=== PATIENT | female | born 1995 | race Caucasian/White ===

== ENCOUNTER 2019-09-05 20:30 | Emergency (ER) | payer MEDICAID, SELFPAY ==
[2019-09-05 20:35] VITALS: BP 122/79; PULSE 88; RESP 18; TEMP 36.8; O2SAT 98; BMI 22.7
[2019-09-05 20:47] VITALS: BP 109/66; PULSE 75; RESP 16; O2SAT 98
--- NOTE | 2019-09-05 20:47 | ED_ITS ---
HPI - Headache General: Chief Complaint: Headache Stated Complaint: H/A Time Seen by Provider: 09/05/19 20:43 Source: patient Mode of arrival: ambulatory Limitations: no limitations History of Present Illness: HPI Narrative: 24-year-old female who has a history of migraines states she had a migraine that started this morning. She states it started gradually and worsened throughout the day and is now a 9 out of 10. She states that bright lights and loud sounds make it worse and it is improved in a dark room. She denies any fever or neck pain. MD elicited complaint: headache and migraine Onset (ago): hour(s) Onset description: gradually Severity: moderate Quality & Timing: aching Exacerbating factors: light Relieving factors: dark room Associated symptoms: Deny chest pain, fever(s), nausea, rash or vomiting Review of Systems Const: Denies: fever(s), chills, body aches or change in appetite Eyes: Denies: blurry vision or eye discomfort ENMT: Denies: throat pain or dental pain Card: Denies: chest pain Resp: Denies: dyspnea GI: Denies: abdominal pain, nausea, vomiting or diarrhea : Denies: dysuria Musc: Denies: neck pain or back pain Skin/Breast: Denies: rash Neuro: Reports: headache(s) Psych: Denies: depression Gabriel/Lymph: Denies: easy bruising All/Imm: Denies: urticaria PFSH ED PFSH: Social History Smoking and tobacco status: current every day smoker Physical Exam Const: COMMON NORMALS: no acute distress, patient oriented x3 and healthy appearing HENMT: COMMON NORMALS: normocephalic and atraumatic HEAD & SCALP: normocephalic and atraumatic Eye: COMMON NORMALS: Equal, round and reactive pupils present and EOMs intact bilaterally PUPIL: Yes Equal, round and reactive pupils present Neck/C-Spine: COMMON NORMALS: full ROM and supple Chest: COMMONS NORMALS: normal inspection of the chest and normal palpation of entire chest wall Resp: COMMON NORMALS: normal respiratory effort, No retractions, No use of accessory muscles and clear to auscultation bilaterally AUSCULTATION: clear to auscultation bilaterally Cardio: COMMON NORMALS: regular rate, regular rhythm and No murmurs present (Cardio) RATE: regular rate RHYTHM: regular rhythm GI: COMMON NORMALS: Normal to inspection, nondistended, normoactive bowel sounds present, Soft to palpation, non-tender and no masses PALPATION: Yes Soft to palpation Extremity: COMMON NORMALS: normal to inspection and full ROM Neuro: COMMON NORMALS: patient oriented x3, moves all extremities and no focal motor deficits Psych: COMMON NORMALS: mental status grossly normal, Normal thought process present and cooperative THOUGHT PROCESS: Normal thought process present Skin: COMMON NORMALS: no rashes or lesions noted and no wounds GENERAL SKIN EXAM: no rashes or lesions noted Course Vital Signs: Vital signs: Vital Signs Temperature 98.2 F 09/05/19 20:35 Pulse Rate 75 09/05/19 20:47 Respiratory Rate 16 09/05/19 20:47 Blood Pressure 109/66 09/05/19 20:47 Pulse Oximetry 98 09/05/19 20:47 MDM - Headache MDM Narrative: Medical decision making narrative: Patient presents here with migraine headache has a history of migraine headaches. Patient has no signs of subarachnoid hemorrhage or meningitis. Patient feels much improved here. Patient is stable for discharge and is to follow-up with primary care doctor in 3 to 5 days return if worsening. 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
--- NOTE | 2019-09-05 20:47 | PC.NURSE ---
patient states she has been having headaches for the last month when she wakes up. Patient states she woke up today and it was worse.
[2019-09-05] MEDS: ketorolac 30 mg/mL INJ 15 MG IVP (21:04)
[2019-09-05] MEDS: metoclopramide 5 mg/mL SDV 2 mL 10 MG IVP (21:04)
[2019-09-05] MEDS: diphenhydrAMINE 50 mg/mL SDV 1mL IVP (21:04)
[2019-09-05] MEDS: sodium chloride 0.9% 1,000 ML 999 ML IV (21:05)
[2019-09-05 21:51] VITALS: BP 122/83; PULSE 91; RESP 14; O2SAT 100
--- NOTE | 2019-09-08 14:04 | DCPLANNER ---
parts and service manager had message to schedule a follow up appointment for patient with Dr. Ramirez. parts and service manager called the office of Dr. Ramirez, spoke with Angelica, gave clinic patients information. A follow up appointment was scheduled for , September 16, 2019 at 8:00 with Rocco. parts and service manager called patient, unable to speak with patient at this time, a voicemail was left for patient to return rehabilitation case coordinator phone call.
--- NOTE | 2019-09-28 14:24 | DCPLANNER ---
Patient did attend appointment scheduled for 09.16.19 with .
== END 2019-09-05 21:53 | disposition home or self-care (01) ==
PROVIDERS: Emergency Provider Emergency Medicine; PCP Nurse Practitioner
DX: G43.909 Migraine, unspecified, not intractable, without status migrainosus (principal); F17.210 Nicotine dependence, cigarettes, uncomplicated
CPT/HCPCS: 12345; 96361; 96374; 96375; 99282; 99283; J1200; J1885; J2765; J7030

== ENCOUNTER → 2019-09-16 08:02 | Outpatient (BNVA) | payer MEDICAID, SELFPAY | PROVIDERS: PCP Nurse Practitioner; Visit Provider Nurse Practitioner | DX: G43.711 Chronic migraine without aura, intractable, with status migrainosus (principal) | CPT/HCPCS: 99204 ==

== ENCOUNTER 2019-09-16 10:43 | Outpatient (CLI) | payer MEDICAID, SELFPAY ==
[2019-09-16 11:17] LABS: Basophils % 0.4 %; Eosinophils # 0.3 10^3/uL (0.0-0.8); Eosinophils % 2.9 %; Hematocrit 42.6 % (37.0-47.0); Hemoglobin 14.3 g/dL (11.5-15.3); Lymphocytes # 2.7 10^3/uL (0.8-4.8); Lymphocytes % 28.8 %; Mean Corpuscular HGB Conc 33.6 g/dL (30.0-36.0); Mean Corpuscular Hemoglobin 28.9 pg (28.0-34.0); Mean Corpuscular Volume 86.2 fL (81-99); Mean Platelet Volume 10.3 fL (7.4-10.4); Monocytes # 1.1 10^3/uL (0.2-0.9); Monocytes % 11.2 %; Neutrophils # 5.4 10^3/uL (1.8-7.7); Neutrophils % 56.5 %; Nucleated Red Blood Cells % 0 %; Platelet Count 356 10^3/cmm (130-400); Red Blood Count 4.94 10^6/uL (4.1-5.3); Red Cell Distribution Width 13.8 % (12.1-15.1); White Blood Count 9.5 10^3/uL (4.0-10.0)
[2019-09-16 11:44] LABS: Alanine Aminotransferase 26 U/L (0-33); Albumin Level 4.4 g/dL (3.5-5.2); Alkaline Phosphatase 84 IU/L (35-105); Anion Gap 17.9 (5-19); Aspartate Amino Transferase 28 U/L (0-32); Blood Urea Nitrogen 7 mg/dL (6-20); Calcium 9.5 mg/dL (8.5-10.5); Carbon Dioxide 22 mmol/L (22-29); Chloride 103 mmol/L (98-107); Globulin 3.2 g/dL (1.3-4.6); Glomerular Filtration Rate 76.3 mL/min (90-130); Glucose 89 mg/dL (65-115); Iron 71 ug/dL (37-145); Osmolality Calculated 283 mOsm/kg (285-295); Potassium 3.9 mmol/L (3.5-5.1); Sodium 139 mmol/L (136-145); Thyroid Stimulating Hormone 5.21 uIU/mL (0.27-4.20); Total Bilirubin 0.2 mg/dL (0.15-1.2); Total Protein 7.6 g/dL (6.6-8.7)
== END 2019-09-16 10:44 | disposition home or self-care (01) ==
LOC: LAB 10:43
PROVIDERS: Visit Provider Nurse Practitioner
DX: G43.909 Migraine, unspecified, not intractable, without status migrainosus (principal)
CPT/HCPCS: 80053; 83540; 84443; 85025

== ENCOUNTER → 2019-09-27 16:25 | Outpatient (BNVA) | payer MEDICAID, SELFPAY | PROVIDERS: Visit Provider Nurse Practitioner | DX: R79.89 Other specified abnormal findings of blood chemistry (principal) | CPT/HCPCS: 84439; 84480; 84481 ==

== ENCOUNTER 2019-10-21 10:44 | Outpatient (CLI) | payer MEDICAID, SELFPAY ==
--- NOTE | 2019-10-21 10:52 | MR_ITS ---
WS: [id number] MRI HEAD WITH CONTRAST TECHNIQUE: Sagittal T1, T2 axial, T2 axial FLAIR, axial susceptibility weighted imaging, axial diffus ion weighted images, and coronal T2 images were obtained. Pre and post-T1 axial and post T1 coronal i mages. ADC and FSPGR images. CLINICAL INFORMATION: NEW AND WORSENING HEADACHE COMPARISON: CT 09/11/2015 MRI 5 10,012. FINDINGS: No evidence of restricted diffusion to suggest acute ischemia. Ventricular system and basal cisterns are patent. No suspicious intracranial signal abnormalities. Normal fong-white differentiation. Francheska l posterior fossa. Normal vascular flow voids at the skull base. No extra-axial fluid collections. No evidence of mass or mass effect. Paranasal sinuses and mastoid air cells well aerated. No hemosiderin on susceptibly weighted images. Normal optic chiasm and pituitary infundibulum. Tempor al lobes and hippocampal formations are normal in appearance. No abnormal gadolinium enhancement. Nor mal optic chiasm and pituitary infundibulum. Normal visualized dural venous sinuses. MR/MR head wo/w con [id number] IMPRESSION: 1. No evidence of restricted diffusion to suggest acute ischemia. 2. No suspicious intracranial signal abnormalities. 3. No abnormal gadolinium enhancement. 4. No hemosiderin on the susceptibly weighted images. 5. No other significant findings.
== END 2019-10-21 10:45 | disposition home or self-care (01) ==
LOC: RADWPI 10:51
PROVIDERS: Family Provider Family Medicine; PCP Family Medicine; Visit Provider Nurse Practitioner
DX: R51 Headache (principal)
CPT/HCPCS: 70553; A9579

== ENCOUNTER 2020-09-08 08:36 | Emergency (ER) | payer MEDICAID, SELFPAY ==
[2020-09-08 08:43] VITALS: BP 128/93; PULSE 97; RESP 18; TEMP 37.2; O2SAT 97; BMI 27.3
--- NOTE | 2020-09-08 08:49 | US_ITS ---
WS: [id number] TRANSABDOMINAL AND TRANSVAGINAL PELVIC ULTRASOUND HISTORY: pain COMPARISON: None available. Uterus: Normal size anteverted uterus measures 7.6 x 2.8 x 4.2 cm. No fibroid. Endometrium: 0.4 cm. Right ovary: 3.9 x 2.5 x 3.4 cm; RIGHT ovarian cyst measures 2.0 x 2.0 x 2.4 cm. Left ovary: 3.4 x 3.5 x 3.3 cm; normal size ovary. Small follicles. Heterogeneous collapsing follicle is present. No increased vascularity. There is a small amount of free fluid in the cul-de-sac. Physiologic amount. US/US pelvic with transvaginal IMPRESSION: 1. No intrauterine gestation. History states positive test. There is no intrauterine gestation. If there is a positive ectopic is not excluded. Recommend follow-up with serial beta hCG levels. 2. Free fluid in the cul-de-sac. 3. Bilateral ovarian cysts and collapsing follicle LEFT ovary.
--- NOTE | 2020-09-08 08:51 | W.ED.ABDPA2 ---
HPI - Abdominal Pain General: Chief Complaint: Abdominal Pain Stated Complaint: cramping, positive preg test Time Seen by Provider: 09/08/20 08:37 History of Present Illness: HPI narrative: 25-year-old female presents to the emergency room with complaints of pelvic pain. She began having pelvic pain this morning little bit more on the left than the right she had a positive digital test morning she still has Nexplanon in place her periods have been very irregular with. Nexplanon was placed 3 years ago. Patient is G4, P2 SAB 1 including this self reported . MD elicited complaint: abdominal pain Pertinent past history: other Onset (ago): hour(s) Pain Consistency: constant Location: Pelvis (Left greater than right) Severity: moderate Quality: cramping Radiation: none Migration to: no migration Exacerbating factors: nothing Relieving factors: nothing Associated Symptoms: Denies anorexia, belching, bloating, change in bowel habits, change in stool character, chills, coffee ground emesis, constipation, GI cramping, diarrhea, dyspepsia, dysuria, excessive flatus, fever(s), heartburn, hematochezia, hematuria, hematemesis, fecal incontinence, loose stools, melena, nausea, poor appetite, syncope and vomiting Review of Systems Const: Denies: fever(s) or chills ENMT: Denies: throat pain, ear or mastoid pain, nasal discharge or nasal congestion Card: Denies: syncope Resp: Denies: dyspnea, productive cough or non-productive cough GI: Denies: nausea, vomiting, hematemesis, coffee ground emesis, heartburn, diarrhea, constipation, bloating, GI cramping, belching, excessive flatus, fecal incontinence, change in bowel habits, change in stool character, hematochezia or melena : Denies: dysuria or hematuria Skin/Breast: Denies: rash or pruritus PFSH ED PFSH: Family History Grandmother Cancer Other Hypertension Social History Smoking and tobacco status: current every day smoker cigarettes Packs smoked per day: 1 History of recent travel: No Physical Exam Const: COMMON NORMALS: no acute distress GENERAL APPEARANCE: cooperative and comfortable ORIENTATION/CONSCIOUSNESS: Yes awake, Yes oriented to person, Yes oriented to place and Yes oriented to time HENMT: COMMON NORMALS: normocephalic, atraumatic, hearing grossly normal bilaterally and external ears normal HEAD & SCALP: normocephalic and atraumatic EXTERNAL EAR: Yes external ears normal Neck/C-Spine: COMMON NORMALS: no JVD Resp: COMMON NORMALS: normal respiratory effort, No retractions, No use of accessory muscles and clear to auscultation bilaterally AUSCULTATION: clear to auscultation bilaterally Cardio: COMMON NORMALS: no JVD, regular rate, regular rhythm and No murmurs present (Cardio) RATE: regular rate RHYTHM: regular rhythm GI: COMMON NORMALS: Soft to palpation and No hepatosplenomegaly present AUSCULTATION: Yes normoactive bowel sounds PALPATION: Yes Soft to palpation, No Tenderness to palpation present (GI), No Guarding due to palpation present (GI) and Yes No hepatosplenomegaly present Extremity: COMMON NORMALS: normal to inspection, capillary refill normal, no clubbing, cyanosis or edema, no calf tenderness and no pedal edema Neuro: SENSORIUM/ORIENTATION: Yes oriented to person, Yes oriented to place and Yes oriented to time Skin: COMMON NORMALS: no rashes or lesions noted GENERAL SKIN EXAM: no rashes or lesions noted Course Vital Signs: Vital signs: Vital Signs Temperature 98.9 F 09/08/20 08:43 Pulse Rate 81 09/08/20 10:21 Respiratory Rate 12 09/08/20 10:05 Blood Pressure 116/96 09/08/20 10:21 Pulse Oximetry 97 09/08/20 10:21 MDM - Abdominal Pain MDM Narrative: Medical decision making narrative: negative there is some fluid in the pelvis suspicious for left ovarian cyst rupture discussed with the patient start on anti-inflammatories follow-up with primary care return if has problems Lab Data: Labs: Lab Results 09/08/20 09/08/20 Range/Units 09:06 09:06 WBC 9.3 (4.0-10.0) 10^3/ uL RBC 5.04 (4.1-5.3) 10^6/u L Hgb 14.9 (11.5-15.3) g/dL Hct 44.6 (37.0-47.0) % MCV 88.5 (81-99) fL MCH 29.6 (28.0-34.0) pg MCHC 33.4 (30.0-36.0) g/dL RDW 12.5 (12.1-15.1) % Plt Count 288 (130-400) 10^3/c mm MPV 9.8 (7.4-10.4) fL Neut % (Auto) 71.6 % Lymph % (Auto) 18.4 % Walker % (Auto) 7.0 % Eos % (Auto) 2.3 % Baso % (Auto) 0.3 % Neut # (Auto) 6.63 (1.8-7.7) 10^3/u L Lymph # (Auto) 1.7 (0.8-4.8) 10^3/u L Walker # (Auto) 0.7 (0.2-0.9) 10^3/u L Eos # (Auto) 0.2 (0.0-0.8) 10^3/u L Baso # (Auto) 0.0 (0.0-0.1) 10^3/u L Nucleated RBC % (a uto) 0 % Nucleated RBCs # 0.0 /100WBC Sodium 137 (136-145) mmol/L Potassium 3.8 (3.5-5.1) mmol/L Chloride 104 (98-107) mmol/L Carbon Dioxide 24 (22-29) mmol/L Anion Gap 12.8 (5-19) BUN 5 L (6-20) mg/dL Creatinine 0.7 (0.5-0.9) mg/dL GFR Calculation 101.1 (90-130) mL/min Glucose 98 (65-115) mg/dL Calculated Osmolal ity 281 L (285-295) mOsm/k g Calcium 8.6 (8.5-10.5) mg/dL Total Bilirubin 0.3 (0.15-1.2) mg/dL AST 16 (0-32) U/L ALT 21 (0-33) U/L Alkaline Phosphata se 91 (35-105) IU/L Total Protein 6.6 (6.6-8.7) g/dL Albumin 3.9 (3.5-5.2) g/dL Globulin 2.7 (1.3-4.6) g/dL Ser , Isa i-Qnt < 0.50 mIU/mL Discharge Plan Discharge Patient Disposition: Home Clinical Impression: Ovarian cyst Condition: Stable Prescriptions: New diclofenac sodium 75 mg tablet,delayed release (DR/EC) 75 mg PO Q12H PRN (Reason: pain) Qty: 20 RF: 0 No Action methadone 40 mg Tablet,Soluble 140 mg PO QAM RF: 0 melatonin 10 mg Tablet 20 mg PO PRN RF: 0 Discharge Orders: Discharge ED (Routine); Ordered 09/08/20 Ordered By: Seth Hernandez Referrals: Rocco Fowler MD [Primary Care Provider] - Patient Instructions: Opioid Safety Coding Level of Care Code ED Baseball U[employer] for Chg Fwd Exam Comprehensive
[2020-09-08 09:09] VITALS: BP 139/90; PULSE 91; RESP 12; O2SAT 96
[2020-09-08 09:12] LABS: Basophils % 0.3 %; Eosinophils # 0.2 10^3/uL (0.0-0.8); Eosinophils % 2.3 %; Hematocrit 44.6 % (37.0-47.0); Hemoglobin 14.9 g/dL (11.5-15.3); Lymphocytes # 1.7 10^3/uL (0.8-4.8); Lymphocytes % 18.4 %; Mean Corpuscular HGB Conc 33.4 g/dL (30.0-36.0); Mean Corpuscular Hemoglobin 29.6 pg (28.0-34.0); Mean Corpuscular Volume 88.5 fL (81-99); Mean Platelet Volume 9.8 fL (7.4-10.4); Monocytes # 0.7 10^3/uL (0.2-0.9); Neutrophils # 6.63 10^3/uL (1.8-7.7); Neutrophils % 71.6 %; Nucleated Red Blood Cells % 0 %; Platelet Count 288 10^3/cmm (130-400); Red Blood Count 5.04 10^6/uL (4.1-5.3); Red Cell Distribution Width 12.5 % (12.1-15.1); White Blood Count 9.3 10^3/uL (4.0-10.0)
[2020-09-08 09:41] LABS: Alanine Aminotransferase 21 U/L (0-33); Albumin Level 3.9 g/dL (3.5-5.2); Alkaline Phosphatase 91 IU/L (35-105); Anion Gap 12.8 (5-19); Aspartate Amino Transferase 16 U/L (0-32); Blood Urea Nitrogen 5 mg/dL (6-20); Calcium 8.6 mg/dL (8.5-10.5); Carbon Dioxide 24 mmol/L (22-29); Chloride 104 mmol/L (98-107); Globulin 2.7 g/dL (1.3-4.6); Glomerular Filtration Rate 101.1 mL/min (90-130); Glucose 98 mg/dL (65-115); Osmolality Calculated 281 mOsm/kg (285-295); Potassium 3.8 mmol/L (3.5-5.1); Sodium 137 mmol/L (136-145); Total Bilirubin 0.3 mg/dL (0.15-1.2); Total Protein 6.6 g/dL (6.6-8.7)
[2020-09-08 09:42] LABS: HCG Quantitative < 0.50 mIU/mL
[2020-09-08 10:05] VITALS: BP 116/96; PULSE 86; RESP 12; O2SAT 98
[2020-09-08 10:21] VITALS: BP 116/96; PULSE 81; O2SAT 97
== END 2020-09-08 10:25 | disposition home or self-care (01) ==
PROVIDERS: Physician Assistant; Emergency Provider Family Medicine; PCP Family Medicine
DX: N83.202 Unspecified ovarian cyst, left side (principal); F17.210 Nicotine dependence, cigarettes, uncomplicated
CPT/HCPCS: 76830; 76856; 80053; 84702; 85025; 99283

== ENCOUNTER 2020-12-10 00:21 | Emergency (ER) | payer MEDICAID, SELFPAY ==
[2020-12-10 00:37] VITALS: BP 131/85; PULSE 80; RESP 18; TEMP 36.6; O2SAT 100; BMI 29.0
--- NOTE | 2020-12-10 01:32 | XRR_ITS ---
PROCEDURE INFORMATION: Exam: XR Right Hand Exam date and time: 12/10/2020 1:32 AM Age: 25 years old Clinical indication: Injury or trauma; Fall; Blunt trauma (contusions or hematomas); Wrist; Right TECHNIQUE: Imaging protocol: XR Right hand. Views: 3 or more views. COMPARISON: No relevant prior studies available. FINDINGS: Bones/joints: Normal. Soft tissues: Normal. XR/XR hand RT min 3V* [id number] IMPRESSION: No acute findings.
[2020-12-10 01:35] VITALS: BP 144/92; PULSE 88; RESP 17; O2SAT 100
--- NOTE | 2020-12-10 01:57 | ED_ITS ---
HPI - Extremity Problem General: Chief complaint: Extremity Injury, Upper Stated complaint: R wrist injury Time Seen by Provider: 12/10/20 01:32 Source: patient Mode of arrival: ambulatory Limitations: no limitations History of Present Illness: HPI Narrative: Patient fell from horse 1 week ago with wrist extended hyperextension of wrist occurred at time of injury. Pain intermittent since injury. No [id number] treatment aside from 1 or 2 doses of ibuprofen over the course of the last week. MD Complaint: extremity pain Onset (ago): week(s) Pain Consistency: intermittent Location: upper extremity (Right wrist) Severity scale (1-10): 4 Quality: dull Radiation: none Relieving factors: medication and rest Exacerbating factors: range of motion and exertion Associated symptoms: Reports no associated symptoms Review of Systems General: Reports: 10 or more systems reviewed and unremarkable except in HPI and below PFSH ED PFSH: Family History Grandmother Cancer Other Hypertension Social History Smoking and tobacco status: current every day smoker cigarettes Packs smoked per day: 1 History of recent travel: No Female Reproductive History: Date of last menstrual period: 10/29/20 Physical Exam Const: COMMON NORMALS: no acute distress, average body habitus, patient oriented x3, no limitations, healthy appearing, alert and well nourished HENMT: COMMON NORMALS: normocephalic and atraumatic HEAD & SCALP: normocephalic and atraumatic Eye: COMMON NORMALS: Equal, round and reactive pupils present, EOMs intact bilaterally, conjunctivae normal, no scleral icterus, no papilledema, normal visual hayes by confrontation and fundi normal bilaterally CONJUNCTIVA: Yes conjunctivae normal PUPIL: Yes Equal, round and reactive pupils present DIRECT OPHTHALMOSCOPY: Yes no papilledema and Yes fundi normal bilaterally Neck/C-Spine: COMMON NORMALS: no JVD Resp: COMMON NORMALS: normal respiratory effort, No retractions, No use of accessory muscles, clear to auscultation bilaterally and percussion normal AUSCULTATION: clear to auscultation bilaterally PERCUSSION: percussion normal Cardio: COMMON NORMALS: no JVD, regular rate, regular rhythm, S1 normal heart sound present, S2 normal heart sound present, No gallops present (Cardio), No clicks present (Cardio), No murmurs present (Cardio) and No rub (Cardio) RATE: regular rate RHYTHM: regular rhythm HEART SOUNDS: S1 normal heart sound present and S2 normal heart sound present Extremity: COMMON NORMALS: normal to inspection, full ROM, capillary refill normal, no joint enlargement, no clubbing, cyanosis or edema, no calf tenderness and no pedal edema NARRATIVE EXTREMITY EXAM: Tenderness to wrist when performing flexion and extension, with range of motion notes tenderness Neuro: COMMON NORMALS: patient oriented x3 SENSORIUM/ORIENTATION: Yes alert Skin: COMMON NORMALS: no rashes or lesions noted, no wounds, turgor normal, no jaundice, no petechiae and no mottling GENERAL SKIN EXAM: no rashes or lesions noted and turgor normal Course Vital Signs: Vital signs: Vital Signs Temperature 97.9 F 12/10/20 00:37 Pulse Rate 88 12/10/20 01:35 Respiratory Rate 17 12/10/20 01:35 Blood Pressure 144/92 12/10/20 01:35 Pulse Oximetry 100 12/10/20 01:35 MDM - Extremity (Nontraumatic) Imaging Data^: Xray Ortho: Attestation: I personally reviewed and interpreted this imaging study as follows: My impression: No fractures noted. Discharge Plan Discharge Patient Disposition: Home Clinical Impression: Sprain and strain of wrist Condition: Stable Prescriptions: New naproxen 500 mg tablet 500 mg PO BID Qty: 20 RF: 0 Held diclofenac sodium 75 mg tablet,delayed release (DR/EC) 75 mg PO Q12H PRN (Reason: pain) Qty: 20 RF: 0 Hold Instructions: Do not take diclofenac and Naproxen together. No Action methadone 40 mg Tablet,Soluble 140 mg PO QAM RF: 0 melatonin 10 mg Tablet 20 mg PO PRN RF: 0 Discharge Orders: Discharge ED (Routine); Ordered 12/10/20 Ordered By: Suzan Ba Referrals: Rocco Fowler MD [Primary Care Provider] - Discharge Diet: Usual diet Discharge Activity: Resume usual activity Patient Instructions: Wrist Injury (ED), RICE Therapy (ED), Opioid Safety Activity Restrictions/Additional Instructions: Follow up with primary care provider in 1 week if no improvement. 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
== END 2020-12-10 02:34 | disposition home or self-care (01) ==
PROVIDERS: Emergency Provider Nurse Practitioner Family; PCP Family Medicine
DX: S63.501A Unspecified sprain of right wrist, initial encounter (principal); S66.911A Strain of unspecified muscle, fascia and tendon at wrist and hand level, right hand, initial encounter; F17.210 Nicotine dependence, cigarettes, uncomplicated; V80.010A Animal-rider injured by fall from or being thrown from horse in noncollision accident, initial encounter
CPT/HCPCS: 29125; 73130; 99283

== ENCOUNTER 2021-07-19 08:56 | Emergency (ER) | payer MEDICAID, SELFPAY ==
[2021-07-19 09:06] VITALS: BP 136/95; PULSE 89; RESP 14; TEMP 36.6; O2SAT 98; BMI 28.1
[2021-07-19 09:14] VITALS: BP 136/78; PULSE 87; RESP 20; O2SAT 99
[2021-07-19 09:15] VITALS: BP 136/78; PULSE 90; RESP 14; TEMP 36.6; O2SAT 99
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
--- NOTE | 2021-07-19 09:24 | ECG_ITS ---
[facility] Test Date: 2021-07-19 Pat Name: Myranda Chen Department: Room: Gender: Female Research Support Specialist: : [id number] Requested By: Donavon Kirk Order Number: [id number] Bonilla MD: Ijeoma Oliveros M.D. Measurements Intervals [place] Rate: 83 P: 45 CA: 178 QRS: 80 QRSD: 98 T: 38 QT: 387 QTc: 457 Interpretive Statements SINUS RHYTHM POSSIBLE LEFT ATRIAL ENLARGEMENT [-0.1mV P-WAVE IN V1/V2] Compared to ECG 12/08/2016 08:20:01 No significant changes Electronically Signed On 07-19-2021 16:45:02 CDT by Ijeoma Oliveros M.D. [email or web address]
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
[2021-07-19 09:43] LABS: Basophils % 0.4 %; Eosinophils # 0.3 10^3/uL (0.0-0.8); Eosinophils % 3.2 %; Hematocrit 45.2 % (37.0-47.0); Hemoglobin 14.7 g/dL (11.5-15.3); Lymphocytes # 2.6 10^3/uL (0.8-4.8); Lymphocytes % 31.3 %; Mean Corpuscular HGB Conc 32.5 g/dL (30.0-36.0); Mean Corpuscular Hemoglobin 29.7 pg (28.0-34.0); Mean Corpuscular Volume 91.3 fl (81-99); Mean Platelet Volume 10.2 fL (7.4-10.4); Monocytes # 0.6 10^3/uL (0.2-0.9); Monocytes % 6.8 %; Neutrophils # 4.76 10^3/uL (1.8-7.7); Neutrophils % 57.8 %; Nucleated Red Blood Cells % 0 %; Platelet Count 277 10^3/cmm (130-400); Red Blood Count 4.95 10^6/uL (4.1-5.3); Red Cell Distribution Width 12.3 % (12.1-15.1); White Blood Count 8.2 10^3/uL (4.0-10.0)
[2021-07-19] MEDS: iohexol 350 mg/mL 100 mL Btl IV (09:55)
[2021-07-19] MEDS: ondansetron 2 mg/ML SDV 2 mL 4 MG IVP (10:00)
[2021-07-19] MEDS: fentaNYL 50 mcg/mL INJ 2mL IVP (10:00)
[2021-07-19] MEDS: sodium chloride 0.9% 1,000 ML 999 ML IV (10:09)
[2021-07-19 10:10] VITALS: BP 137/91; PULSE 85; RESP 16; O2SAT 97
[2021-07-19 10:23] LABS: Alanine Aminotransferase 28 U/L (0-33); Albumin Level 3.7 g/dL (3.5-5.2); Alkaline Phosphatase 94 IU/L (35-105); Anion Gap 18.1 (5-19); Aspartate Amino Transferase 19 U/L (0-32); Blood Urea Nitrogen 7 mg/dL (6-20); Calcium 9.2 mg/dL (8.5-10.5); Carbon Dioxide 19 mmol/L (22-29); Chloride 104 mmol/L (98-107); Globulin 2.5 g/dL (1.3-4.6); Glomerular Filtration Rate 100.4 mL/min (90-130); Glucose 122 mg/dL (65-115); Osmolality Calculated 283 mOsm/kg (285-295); Potassium 4.1 mmol/L (3.5-5.1); Sodium 137 mmol/L (136-145); Total Bilirubin 0.2 mg/dL (0.15-1.2); Total Protein 6.2 g/dL (6.6-8.7)
[2021-07-19 10:24] LABS: Alcohol Level < 10 mg/dL (0-10)
[2021-07-19 10:30] LABS: Lactate (Lactic Acid level) 1.1 mmol/L (0.5-2.2)
[2021-07-19 10:32] LABS: HCG, Serum Qual Negative (Negative)
[2021-07-19 11:00] LABS: INR 0.96 (0.8-1.2)
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
[2021-07-19 12:48] LABS: Amphetamines Screen Urine Negative (Negative); Barbiturates Screen Urine Negative (Negative); Benzodiazepines Screen Urine Negative (Negative); Cocaine Screen Urine Negative (Negative); Opiate Screen Urine Negative (Negative); PCP Screen Urine Negative (Negative); THC Screen Urine Negative (Negative)
[2021-07-19 12:52] LABS: Add Urine Culture? No; Add Urine Microscopic? YES; Bacteria Urine 2+ /hpf; Bilirubin Urine Neg (Negative); Blood Urine Neg (Negative); Glucose Urine UA Norm (Normal); Ketones Urine Negative (Negative); Leukocyte Esterase Urine Negative (Negative); Nitrate Urine Negative (Negative); Protein Urine Neg (Negative); RBC Urine RARE /hpf (0-2); Urine Appearance Hazy (CLEAR); Urine Color Yellow (Yellow); Urobilinogen Urine Neg (Negative); pH Urine 7 (5-7)
[2021-07-19 13:37] VITALS: BP 132/88; PULSE 88; RESP 18; O2SAT 99
[2021-07-19 13:38] VITALS: BP 132/88; PULSE 88; RESP 18; O2SAT 99
== END 2021-07-19 13:40 | disposition home or self-care (01) ==
PROVIDERS: Emergency Provider Emergency Medicine
DX: S13.4XXA Sprain of ligaments of cervical spine, initial encounter (principal); V49.49XA Driver injured in collision with other motor vehicles in traffic accident, initial encounter; S09.90XA Unspecified injury of head, initial encounter; S42.452A Displaced fracture of lateral condyle of left humerus, initial encounter for closed fracture
CPT/HCPCS: 70450; 71045; 71260; 72125; 72170; 73060; 73080; 73200; 74177; 80053; 80306; 80307; 81001; 83605; 84703; 85025; 85610; 86850; 86900; 93005; 96361; 96374; 96375; 99284; J2405; J3010; J7030; Q9967

== ENCOUNTER → 2021-07-25 15:57 | Outpatient (BNVA) | payer MEDICAID, SELFPAY | PROVIDERS: Referring Provider Orthopaedic Surgery Adult Reconstructive Orthopaedic Surgery; Visit Provider Specialist | DX: S42.453A Displaced fracture of lateral condyle of unspecified humerus, initial encounter for closed fracture (principal); V89.2XXA Person injured in unspecified motor-vehicle accident, traffic, initial encounter | CPT/HCPCS: 73080; 99203; 99204 ==

== ENCOUNTER → 2021-11-01 18:30 | Outpatient (BNVA) | payer MEDICAID, SELFPAY | PROVIDERS: PCP Nurse Practitioner Family; Visit Provider Registered Nurse Neonatal Intensive Care | DX: U07.1 COVID-19 (principal) | CPT/HCPCS: 87426 ==

== ENCOUNTER 2021-11-12 01:15 | Emergency (ER) | payer MEDICAID, SELFPAY ==
[2021-11-12 01:21] VITALS: BP 143/76; PULSE 97; RESP 16; TEMP 37; O2SAT 98; BMI 29.0
--- NOTE | 2021-11-12 01:24 | XRR_ITS ---
PROCEDURE INFORMATION: Exam: XR Right Hand Exam date and time: 11/12/2021 1:43 AM Age: 26 years old Clinical indication: Injury or trauma; Fall; Blunt trauma (contusions or hematomas); Hand; Right TECHNIQUE: Imaging protocol: Radiologic exam of the Right hand. Views: 3 or more views. COMPARISON: No relevant prior studies available. FINDINGS: Bones/joints: No acute fracture or dislocation. Soft tissues: Normal. XR/XR hand RT min 3V* [id number] IMPRESSION: No acute fracture or dislocation.
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
[2021-11-12] MEDS: HYDROcodone-acetaminophen 7.5-325 mg Tablet 1 TAB PO ×2 (01:37→04:52)
[2021-11-12 02:04] VITALS: BP 143/76; PULSE 97; RESP 16; TEMP 37; O2SAT 98
--- NOTE | 2021-11-12 03:30 | ED_ITS ---
HPI - Extremity Problem General: Chief complaint: Extremity Injury, Upper Stated complaint: Fall/ R wrist and hand pain Time Seen by Provider: 11/12/21 01:16 Source: patient Mode of arrival: ambulatory Limitations: no limitations History of Present Illness: . [facility], [facility] PFSH: Surgical History History of surgery on upper extremity Left arm Family History Grandmother Cancer Other Hypertension Social History Smoking and tobacco status: never smoked History of recent travel: No Female Reproductive History: Date of last menstrual period: 10/29/20 Course Vital Signs: Vital signs: Vital Signs Temperature 98.6 F 11/12/21 02:04 Pulse Rate 97 11/12/21 02:04 Respiratory Rate 16 11/12/21 02:04 Blood Pressure 143/76 11/12/21 02:04 Pulse Oximetry 98 11/12/21 02:04 MDM - Extremity (Nontraumatic) Medical Decision Making Radiologist read x-ray as a possible triquetrum fracture I did speak to patient over the phone she is going back and will place a sugar-tong splint get follow- up with orthopedics. Lab Data Radiology Impressions Hand X-Ray 11/12/21 01:24 IMPRESSION: No acute fracture or dislocation. Wrist X-Ray 11/12/21 01:24 IMPRESSION: There is a lucency through the triquetrum concerning for fracture. Discharge Plan Discharge Patient Disposition: Home Clinical Impression: Fracture of triquetral bone of right wrist Sprain of hand, right Qualifiers: Encounter type: initial encounter Qualified Code(s): S63.91XA - Sprain of unspecified part of right wrist and hand, initial encounter Condition: Stable Prescriptions: New Naprosyn 500 mg tablet 500 mg PO BID PRN (Reason: pain) Qty: 20 0RF hydrocodone-acetaminophen 5-325 mg tablet 1 tab PO Q6H PRN (Reason: pain) Qty: 14 0RF No Action methadone 40 mg Tablet,Soluble 140 mg PO QAM melatonin 10 mg Tablet 20 mg PO PRN Discharge Orders: Discharge ED (Routine); Ordered 11/12/21 Ordered By: Korby Grace Discharge Diet: Advance as tolerated Discharge Activity: Resume usual activity Patient Instructions: Wrist Fracture in Adults (ED) Coding Level of Care Code ED Layout Man for William Ro
--- NOTE | 2021-11-12 11:01 | DCPLANNER ---
Addendum entered by Lien Graham 11/15/21 14:34: Patient had a follow up appointment scheduled for 11.14.21 with Cosmo Brantley at ortho - patient did attend appointment. Original Note: review manager had message to schedule a follow up appointment for patient with ortho. review manager sent patients information to the front office staff at ortho. Patients information will be printed and reviewed. Clinic will call patient with appointment information.
== END 2021-11-12 05:01 | disposition home or self-care (01) ==
PROVIDERS: Emergency Provider Emergency Medicine
DX: S63.91XA Sprain of unspecified part of right wrist and hand, initial encounter (principal); Z79.891 Long term (current) use of opiate analgesic; W01.0XXA Fall on same level from slipping, tripping and stumbling without subsequent striking against object, initial encounter
CPT/HCPCS: 29125; 73110; 73130; 99283

== ENCOUNTER → 2021-11-14 11:04 | Outpatient (BNVA) | payer MEDICAID, SELFPAY | PROVIDERS: Visit Provider Nurse Practitioner Family | DX: W01.0XXA Fall on same level from slipping, tripping and stumbling without subsequent striking against object, initial encounter (principal); S62.111A Displaced fracture of triquetrum [cuneiform] bone, right wrist, initial encounter for closed fracture | CPT/HCPCS: 99214 ==

== ENCOUNTER 2021-11-14 15:00 | Outpatient (CLI) | payer MEDICAID, SELFPAY | END 2021-11-14 15:01 | disposition home or self-care (01) | LOC: SPT 15:01 | PROVIDERS: Visit Provider Nurse Practitioner Family | DX: Z46.89 Encounter for fitting and adjustment of other specified devices (principal); S62.114D Nondisplaced fracture of triquetrum [cuneiform] bone, right wrist, subsequent encounter for fracture with routine healing; X58.XXXD Exposure to other specified factors, subsequent encounter | CPT/HCPCS: 97760; L3984 ==

== ENCOUNTER → 2022-10-16 13:04 | Outpatient (BNVA) | payer MEDICAID, SELFPAY | PROVIDERS: Visit Provider Nurse Practitioner Family | DX: M79.641 Pain in right hand (principal); Z87.81 Personal history of (healed) traumatic fracture; M79.89 Other specified soft tissue disorders | CPT/HCPCS: 73130 ==

== ENCOUNTER → 2023-05-15 18:30 | Outpatient (BNVA) | payer MEDICAID, SELFPAY | PROVIDERS: Visit Provider Registered Nurse Neonatal Intensive Care | DX: R05.9 Cough, unspecified (principal) | CPT/HCPCS: 87400; 87426 ==

== ENCOUNTER 2024-07-31 18:11 | Emergency (ER) | payer MEDICAID, SELFPAY ==
[2024-07-31 18:19] VITALS: BP 154/105; PULSE 108; RESP 18; BMI 28.1
[2024-07-31 18:25] VITALS: BP 154/105; PULSE 108; RESP 18; TEMP 36.9; O2SAT 97
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
[2024-07-31] MEDS: iohexol 350 mg/mL 500 mL Btl (per mL) IV (18:58)
[2024-07-31 20:40] VITALS: BP 156/98; PULSE 76; RESP 16; O2SAT 97
== END 2024-07-31 20:43 | disposition home or self-care (01) ==
PROVIDERS: Emergency Provider Emergency Medicine
DX: S80.01XA Contusion of right knee, initial encounter (principal); R10.9 Unspecified abdominal pain; M25.532 Pain in left wrist; F17.210 Nicotine dependence, cigarettes, uncomplicated; V89.2XXA Person injured in unspecified motor-vehicle accident, traffic, initial encounter
CPT/HCPCS: 70450; 71260; 72125; 73110; 73562; 74177; 99285

== ENCOUNTER 2024-09-25 18:38 | Emergency (ER) | payer MEDICAID, SELFPAY ==
[2024-09-25 18:45] VITALS: BP 128/82; PULSE 87; RESP 16; TEMP 37; O2SAT 99; BMI 27.3
--- OUTSIDE RECORDS SUMMARY | 2024-09-25 18:47 | XMS_ITS | Patient Health Record ---
Author Organization [facility] Address [address] [place] [address] Care Team Providers Care Bundle Sorter Name Role Phone Philippe Robles Unavailable [phone] Reason For Referral No Information Problems Problem Type SNOMED Code ICD Code Onset Dates Problem Status W/U Status Risk Notes Problem Low back pain (644583943) Low back pain (724.2) 7 Active confirmed [id number]- Problem Sinus tachycardia (59726567) Sinus tachycardia (427.89) 7 Active confirmed [id number]- Problem Pneumonia and influenza (356376108) Influenza, with pneumonia (487.0) 7 Problem resolved confirmed [id number]- Problem Missed (88890679) Miscarriage before 22 weeks gestation (632) 7 Problem resolved confirmed [id number] 11- Plan Of Treatment No Information
[2024-09-25 19:16] VITALS: BP 144/91; O2SAT 98
[2024-09-25 19:35] LABS: Bilirubin Urine Negative (Negative); Blood Urine 3+ (Negative); Glucose Urine UA Negative (Normal); Ketones Urine Trace (Negative); Leukocyte Esterase Urine Trace (Negative); Nitrate Urine Negative (Negative); Protein Urine Negative (Negative); Specific Gravity, Urine 1.025 (1.005-1.030); Urine Appearance Cloudy (CLEAR); Urine Color Dark Yellow (Yellow); pH Urine 5.5 (5-7)
[2024-09-25 19:38] LABS: Basophils % 0.5 %; Eosinophils # 0.2 10^3/uL (0.0-0.8); Eosinophils % 1.9 %; Lymphocytes # 2.2 10^3/uL (0.8-4.8); Lymphocytes % 25.4 %; Mean Corpuscular HGB Conc 34.1 g/dL (30-55); Mean Corpuscular Hemoglobin 30.1 pg (27-33); Mean Corpuscular Volume 88.2 fl (85-98); Mean Platelet Volume 9.6 fL (7.4-10.4); Monocytes # 0.6 10^3/uL (0.2-0.9); Monocytes % 6.8 %; Neutrophils # 5.51 10^3/uL (1.8-7.7); Nucleated Red Blood Cells % 0 %; Platelet Count 308 10^3/cmm (157-399); Red Blood Count 4.99 10^6/uL (3.85-5.65); Red Cell Distribution Width 12.3 % (12.1-15.1); White Blood Count 8.47 10^3/uL (3.29-11.43)
[2024-09-25 19:40] LABS: Add Urine Microscopic? YES; Bacteria Urine 4+ /hpf; Hyaline Casts Urine 1.21 /lpf; Squamous Epithelial Cell Urine 21-50 /hpf (0-5); WBC Urine 0-5 /hpf (0-5)
--- NOTE | 2024-09-25 19:49 | USR_ITS ---
PROCEDURE INFORMATION: Exam: US , Transvaginal Exam date and time: 09/25/2024 8:54 PM Age: 29 years old Clinical indication: complicated by abdominal or pelvic pain; Lower; First trimester (<14 weeks 0 days); Gestational age or lmp: Unknown; ; Additional info: Spotting, preg, lower abd pain LABS AND CLINICAL REPORTS: Last menstrual period start date: Unknown TECHNIQUE: Imaging protocol: Real-time transvaginal obstetrical ultrasound of the maternal pelvis with image documentation. Transvaginal imaging was used for better evaluation of the fetus, adnexa, and/or cervix. COMPARISON: US pelv w/transvag [id number] 09/08/2020 9:21 AM FINDINGS: Gestation: No intrauterine . MATERNAL: Uterus: The endometrial stripe measures 7 mm in thickness. The uterus measures 3.5 x 6.6 x 4.0 cm. No uterine mass. Right ovary/adnexa: The right ovary measures 1.8 x 1.0 x 1.8 cm. Color and spectral Doppler interrogation of the right ovary documents arterial and venous flow. Left ovary/adnexa: The left ovary measures 2.3 x 1.8 x 2.1 cm. Color and spectral Doppler interrogation of the left ovary documents arterial and venous flow. Intraperitoneal space: No free fluid. US/US OB transvaginal [id number] IMPRESSION: 1. Negative exam for intrauterine . This may reflect an early too early to be seen on ultrasound, a failed or an ectopic . Clinical correlation advised. 2. Negative exam for ovarian torsion.
[2024-09-25 19:54] LABS: HCG Quantitative 54.64 mIU/mL
[2024-09-25 20:02] LABS: UA Slide Review UA Slide Review Perf
[2024-09-25 20:03] VITALS: BP 135/103
--- NOTE | 2024-09-25 20:34 | W.ED.FEMALGU ---
Documented by User: [email or web address] Valente 09/25/24 23:44 HPI - Female Genitourinary General: Chief complaint: Urogenital-Female Stated complaint: spotting preg, not sure how far Time Seen by Provider: 09/25/24 18:52 Source: patient Mode of arrival: ambulatory Limitations: no limitations History of Present Illness: Patient is a 29-year-old female who presents the emergency department complaining of vaginal spotting the past couple of days. States that she has taken 4 home test that been positive, states that chronically she has irregular menstruation so she is unsure when her last normal menstrual period was but believes it was somewhere close to a month ago. 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 Notes that her and partner have been attempting to conceive. Also she does comment that she has had a Nexplanon bar in her left bicep for greater than 5 years, and states that she has attempted to follow-up with [facility] multiple times but has been unable to do so. Told that the efficacy of this implant was only 3 years. No other symptoms reported at this time, she is not reporting any dizziness or lightheadedness with ambulating, palpitations or shortness of breath, or other symptoms at this time. MD elicited complaint: vaginal bleeding and suspected Pertinent past history: prior miscarriages Onset (ago): day(s) Severity: mild Quality of pain: cramping Consistency: constant Vaginal discharge: none Vaginal bleeding: scant Associated symptoms: Deny abdominal pain, headache(s) or nausea Sexual activity: Yes Patient : Yes Possible : at home test positive Related Data Home Medications ?Medication ?Instructions ?Recorded ?Confirmed melatonin 10 mg tablet 20 mg PO PRN 09/08/20 09/07/24 methadone 40 mg soluble tablet 140 mg PO QAM 09/08/20 09/07/24 Previous Rx's ?Medication ?Instructions ?Recorded sulfamethoxazole 800 1 tab PO BID 10 days #20 tabs 09/07/24 mg-trimethoprim 160 mg tablet Allergies Allergy/AdvReac Type Severity Reaction Status Date / Time No Known Allergies Allergy Verified 09/07/24 15:43 Review of Systems General: Reports: 10 or more systems reviewed and unremarkable except in HPI and below Const: Denies: fever(s), chills, change in appetite, change in weight or diaphoresis ENMT: Denies: throat pain or hoarseness Card: Denies: chest pain, palpitations or lightheadedness Resp: Denies: dyspnea, productive cough or wheezing GI: Reports: GI cramping; Denies: abdominal pain, nausea, vomiting, diarrhea, constipation, bloating, change in stool character or hematochezia : Reports: vaginal bleeding and other (reports ); Denies: flank pain, difficulty voiding, dysuria, urinary frequency or urinary urgency Musc: Denies: neck pain or back pain Skin/Breast: Denies: rash or new lesions Neuro: Denies: headache(s) or dizziness PFSH ED PFSH: Surgical History History of surgery on upper extremity Left arm Family History Grandmother Cancer Other Hypertension Social History Smoking and tobacco/nicotine status: current every day tobacco/nicotine user cigarettes Packs smoked per day: 1 Physical Exam Const: COMMON NORMALS: no acute distress, average body habitus, patient oriented x3, no limitations, healthy appearing, alert and well nourished GENERAL APPEARANCE: cooperative and comfortable ORIENTATION/CONSCIOUSNESS: Yes awake HENMT: COMMON NORMALS: normocephalic, atraumatic, hearing grossly normal bilaterally, external ears normal, Normal external nose present, Normal nasal mucous membranes and turbinates present and moist oral mucous membranes HEAD & SCALP: normocephalic and atraumatic NOSE: Normal external nose present and Normal nasal mucous membranes and turbinates present EXTERNAL EAR: Yes external ears normal Eye: COMMON NORMALS: Equal, round and reactive pupils present, EOMs intact bilaterally, conjunctivae normal and normal visual hayes by confrontation CONJUNCTIVA: Yes conjunctivae normal PUPIL: Yes Equal, round and reactive pupils present Neck/C-Spine: COMMON NORMALS: full ROM, supple, no meningeal signs and no JVD Resp: COMMON NORMALS: normal respiratory effort, No retractions, No use of accessory muscles and clear to auscultation bilaterally AUSCULTATION: clear to auscultation bilaterally, no crackles, no rales, no rhonchi and no wheezes Cardio: COMMON NORMALS: no JVD, regular rate, regular rhythm, S1 normal heart sound present, S2 normal heart sound present, No gallops present (Cardio), No clicks present (Cardio), No murmurs present (Cardio), No rub (Cardio) and Peripheral pulses 2+ throughout RATE: regular rate RHYTHM: regular rhythm HEART SOUNDS: S1 normal heart sound present and S2 normal heart sound present PERIPHERAL PULSES: Peripheral pulses 2+ throughout GI: COMMON NORMALS: Normal to inspection, nondistended, normoactive bowel sounds present, Soft to palpation, non-tender, No hepatosplenomegaly present and no masses AUSCULTATION: Yes normoactive bowel sounds PALPATION: Yes Soft to palpation, No Guarding due to palpation present (GI), No Rigid due to palpation and Yes No hepatosplenomegaly present RECTAL EXAM: deferred Extremity: COMMON NORMALS: normal to inspection and full ROM Neuro: COMMON NORMALS: patient oriented x3, moves all extremities, no focal motor deficits and no sensory deficits noted SENSORIUM/ORIENTATION: Yes alert MENINGEAL SIGNS: Yes no meningeal signs Psych: COMMON NORMALS: mental status grossly normal, cooperative and speech normal SPEECH: Yes normal speech Skin: COMMON NORMALS: no rashes or lesions noted GENERAL SKIN EXAM: no rashes or lesions noted Course Vital Signs: Vital signs: Vital Signs Temperature 98.6 F 09/25/24 18:45 Pulse Rate 87 09/25/24 18:45 Respiratory Rate 16 09/25/24 18:45 Blood Pressure 135/103 09/25/24 20:03 Pulse Oximetry 98 09/25/24 19:16 Oxygen Delivery Me thod Room Air 09/25/24 18:45 MDM - Female Medical Decision Making Patient presenting with mild spotting, as well as positive test at home. She does not have primary care follow-up or [facility] follow-up. Another concern of hers was that she has implanted Nexplanon device in her left upper arm, its efficacy was only supposed to be 3 years however she has had it in close to 8 years. Her blood work was unremarkable, does appear that she is very early with a beta-hCG of 54. Transvaginal ultrasound ordered to rule out any ectopic or other acute abnormality. Negative intrauterine at this time of this is likely due to the early . Unlikely failed and do not suspect ectopic due to her hCG levels. No ovarian torsion. This could be implantation bleeding or other benign bleeding, she has been hemodynamically stable and I will refer her to [facility] to address her Nexplanon device as well as for appropriate care. Discussed return precautions with her, she verbalized understanding. Lab Data 09/25/24 19:22 Radiology Impressions Transvaginal US 09/25/24 19:49 IMPRESSION: 1. Negative exam for intrauterine . This may reflect an early too early to be seen on ultrasound, a failed or an ectopic . Clinical correlation advised. 2. Negative exam for ovarian torsion. Laboratory Results WBC 8.47 10^3/uL (3.29-11.43) 09/25/24 19:22 RBC 4.99 10^6/uL (3.85-5.65) 09/25/24 19:22 Hgb 15.00 g/dL (11.27-16.99) 09/25/24 19:22 Hct 44.0 % (36-47) 09/25/24 19:22 MCV 88.2 fl (85-98) 09/25/24 19:22 MCH 30.1 pg (27-33) 09/25/24 19:22 MCHC 34.1 g/dL (30-55) 09/25/24 19:22 RDW 12.3 % (12.1-15.1) 09/25/24 19:22 Plt Count 308 10^3/cmm (157-399) 09/25/24 19:22 MPV 9.6 fL (7.4-10.4) 09/25/24 19:22 Neut % (Auto) 65.0 % 09/25/24 19:22 Lymph % (Auto) 25.4 % 09/25/24 19:22 [place] % (Auto) 6.8 % 09/25/24 19:22 Eos % (Auto) 1.9 % 09/25/24 19:22 Baso % (Auto) 0.5 % 09/25/24 19:22 Neut # (Auto) 5.51 10^3/uL (1.8-7.7) 09/25/24 19:22 Lymph # (Auto) 2.2 10^3/uL (0.8-4.8) 09/25/24 19:22 [place] # (Auto) 0.6 10^3/uL (0.2-0.9) 09/25/24 19:22 Eos # (Auto) 0.2 10^3/uL (0.0-0.8) 09/25/24 19:22 Baso # (Auto) 0.0 10^3/uL (0.0-0.1) 09/25/24 19:22 Nucleated RBC % (auto) 0 % 09/25/24 19:22 Nucleated RBCs # 0.0 /100WBC 09/25/24 19:22 Ser , Semi-Qnt 54.64 mIU/mL 09/25/24 19:22 Urine Color Dark yellow (Yellow) A 09/25/24 19:08 Urine Appearance Cloudy (CLEAR) A 09/25/24 19:08 Urine pH 5.5 (5-7) 09/25/24 19:08 Ur Specific [place] 1.025 (1.005-1.030) 09/25/24 19:08 Urine Protein Negative (Negative) 09/25/24 19:08 Urine Glucose (UA) Negative (Normal) 09/25/24 19:08 Urine Ketones Trace (Negative) 09/25/24 19:08 Urine Blood 3+ (Negative) A 09/25/24 19:08 Urine Nitrate Negative (Negative) 09/25/24 19:08 Urine Bilirubin Negative (Negative) 09/25/24 19:08 Urine Urobilinogen 1.0 mg/dL (Negative) 09/25/24 19:08 Ur Leukocyte Esterase Trace (Negative) A 09/25/24 19:08 Urine RBC 11-20 /hpf (0-2) H 09/25/24 19:08 Urine WBC 0-5 /hpf (0-5) 09/25/24 19:08 Ur Squamous Epith Cells 21-50 /hpf (0-5) H 09/25/24 19:08 Calcium Oxalate Crystal 10-15 /hpf H 09/25/24 19:08 Amorphous Sediment Not Reportable 09/25/24 19:08 Urine Bacteria 4+ /hpf (NONE) H 09/25/24 19:08 Hyaline Casts 1.21 /lpf 09/25/24 19:08 Blood Type B Positive 09/25/24 19:22 Rho(D) Type Rh positive 09/25/24 19:22 All radiology interpretation(s) finalized by discharge Discharge Plan Discharge Patient Disposition: Home Clinical Impression: First trimester , Vaginal bleeding Condition: Stable Prescriptions: No Action sulfamethoxazole-trimethoprim 800-160 mg tablet 1 tab PO BID 10 Days Qty: 20 0RF methadone 40 mg Tablet,Soluble 140 mg PO QAM melatonin 10 mg Tablet 20 mg PO PRN Discharge Orders: Discharge ED (Routine); Ordered 09/25/24 Ordered By: Carlos Maurice Patient Instructions: Pain Management, Patient Portal & Giovani Instructions Activity Restrictions/Additional Instructions: Early Spotting Discharge Diagnosis and Current Status: The patient presented with spotting in early . Quantitative beta-hCG confirmed early gestation. Transvaginal ultrasound excluded ectopic , ovarian torsion, and other surgical emergencies. Laboratory evaluation was unremarkable. Expected Course and Follow-Up: Spotting is a common symptom in early and may be associated with hormonal changes, implantation, or prior use of long-acting reversible contraception (LARC) such as Nexplanon. The [place] [employer] recommends close follow-up for any abnormal bleeding in early , with serial beta-hCG measurements and repeat ultrasound as indicated to confirm location and viability, especially if symptoms persist or worsen. The patient will be referred to [facility] for ongoing management and evaluation of the Nexplanon implant, which should be removed as soon as feasible per FDA recommendations. Instructions: - Monitor for increased vaginal bleeding (soaking >1 pad/hour for 2 consecutive hours), severe abdominal pain, dizziness, syncope, or shoulder pain. These may indicate complications such as miscarriage or ectopic and require immediate medical attention. - Expect mild spotting or irregular bleeding, which is common in early and among users of progestin-only implants like Nexplanon, especially if the device is . - Avoid strenuous activity and sexual intercourse until follow-up, as advised by [facility]. - Keep the scheduled [facility] appointment for further evaluation, serial beta-hCG testing, and Nexplanon removal. The FDA advises removal of Nexplanon after 3 years to avoid contraceptive failure and abnormal bleeding patterns. - Do not use tampons or insert anything vaginally until cleared by [facility]. - Take acetaminophen for mild discomfort unless otherwise instructed. When to Seek Immediate Care: - Heavy vaginal bleeding (soaking >1 pad/hour for 2 hours) - Severe or worsening abdominal pain - Fainting, dizziness, or shortness of breath - Fever or chills - Severe pain, redness, or swelling at the Nexplanon site Additional Notes: Persistent or recurrent abnormal bleeding in the setting of an Nexplanon implant should be evaluated to rule out other causes, including infection or endometrial pathology, as recommended by the FDA and supported by clinical data. The patient should be counseled that irregular bleeding is a common side effect of progestin-only implants, but new or persistent symptoms in warrant prompt evaluation. Planned Follow-Up: - [facility] referral for ongoing care and Nexplanon removal - Serial beta-hCG and repeat ultrasound as clinically indicated Print Language: Guinean Coding Level of Care Code ED Sprayer Leather for Chg Fwd Documented by User: Torsten Srinivasan, 09/26/24 00:36 HPI - Female Genitourinary General: Chief complaint: Urogenital-Female Stated complaint: spotting preg, not sure how far Time Seen by Provider: 09/25/24 18:52 Related Data Home Medications ?Medication ?Instructions ?Recorded ?Confirmed melatonin 10 mg tablet 20 mg PO PRN 09/08/20 09/07/24 methadone 40 mg soluble tablet 140 mg PO QAM 09/08/20 09/07/24 Previous Rx's ?Medication ?Instructions ?Recorded sulfamethoxazole 800 1 tab PO BID 10 days #20 tabs 09/07/24 mg-trimethoprim 160 mg tablet Allergies Allergy/AdvReac Type Severity Reaction Status Date / Time No Known Allergies Allergy Verified 09/07/24 15:43 PFSH ED PFSH: Surgical History History of surgery on upper extremity Left arm Family History Grandmother Cancer Other Hypertension Social History Smoking and tobacco/nicotine status: current every day tobacco/nicotine user cigarettes Packs smoked per day: 1 Course Vital Signs: Vital signs: Vital Signs Temperature 98.6 F 09/25/24 18:45 Pulse Rate 87 09/25/24 18:45 Respiratory Rate 16 09/25/24 18:45 Blood Pressure 135/103 09/25/24 20:03 Pulse Oximetry 98 09/25/24 19:16 Oxygen Delivery Me thod Room Air 09/25/24 18:45 MDM - Female Medical Decision Making Patient presenting with mild spotting, as well as positive test at home. She does not have primary care follow-up or [facility] follow-up. Another concern of hers was that she has implanted Nexplanon device in her left upper arm, its efficacy was only supposed to be 3 years however she has had it in close to 8 years. Her blood work was unremarkable, does appear that she is very early with a beta-hCG of 54. Transvaginal ultrasound ordered to rule out any ectopic or other acute abnormality. Negative intrauterine at this time of this is likely due to the early . Unlikely failed and do not suspect ectopic due to her hCG levels. No ovarian torsion. This could be implantation bleeding or other benign bleeding, she has been hemodynamically stable and I will refer her to [facility] to address her Nexplanon device as well as for appropriate care. Discussed return precautions with her, she verbalized understanding. This patient was originally seen by Mr. Kaylene PA-C. I agree with his history, evaluation, and management. Lab Data 09/25/24 19:22 Radiology Impressions Transvaginal US 09/25/24 19:49 IMPRESSION: 1. Negative exam for intrauterine . This may reflect an early too early to be seen on ultrasound, a failed or an ectopic . Clinical correlation advised. 2. Negative exam for ovarian torsion. Laboratory Results WBC 8.47 10^3/uL (3.29-11.43) 09/25/24 19:22 RBC 4.99 10^6/uL (3.85-5.65) 09/25/24 19:22 Hgb 15.00 g/dL (11.27-16.99) 09/25/24 19:22 Hct 44.0 % (36-47) 09/25/24 19:22 MCV 88.2 fl (85-98) 09/25/24 19:22 MCH 30.1 pg (27-33) 09/25/24 19:22 MCHC 34.1 g/dL (30-55) 09/25/24 19:22 RDW 12.3 % (12.1-15.1) 09/25/24 19:22 Plt Count 308 10^3/cmm (157-399) 09/25/24 19:22 MPV 9.6 fL (7.4-10.4) 09/25/24 19:22 Neut % (Auto) 65.0 % 09/25/24 19:22 Lymph % (Auto) 25.4 % 09/25/24 19:22 [place] % (Auto) 6.8 % 09/25/24 19:22 Eos % (Auto) 1.9 % 09/25/24 19:22 Baso % (Auto) 0.5 % 09/25/24 19: Neut # (Auto) 5.51 10^3/uL (1.8-7.7) 09/25/24 19:22 Lymph # (Auto) 2.2 10^3/uL (0.8-4.8) 09/25/24 19:22 [place] # (Auto) 0.6 10^3/uL (0.2-0.9) 09/25/24 19:22 Eos # (Auto) 0.2 10^3/uL (0.0-0.8) 09/25/24 19:22 Baso # (Auto) 0.0 10^3/uL (0.0-0.1) 09/25/24 19:22 Nucleated RBC % (auto) 0 % 09/25/24 19: Nucleated RBCs # 0.0 /100WBC 09/25/24 19:22 Ser , Semi-Qnt 54.64 mIU/mL 09/25/24 19:22 Urine Color Dark yellow (Yellow) A 09/25/24 19:08 Urine Appearance Cloudy (CLEAR) A 09/25/24 19:08 Urine pH 5.5 (5-7) 09/25/24 19:08 Ur Specific [place] 1.025 (1.005-1.030) 09/25/24 19:08 Urine Protein Negative (Negative) 09/25/24 19:08 Urine Glucose (UA) Negative (Normal) 09/25/24 19:08 Urine Ketones Trace (Negative) 09/25/24 19:08 Urine Blood 3+ (Negative) A 09/25/24 19:08 Urine Nitrate Negative (Negative) 09/25/24 19:08 Urine Bilirubin Negative (Negative) 09/25/24 19:08 Urine Urobilinogen 1.0 mg/dL (Negative) 09/25/24 19:08 Ur Leukocyte Esterase Trace (Negative) A 09/25/24 19:08 Urine RBC 11-20 /hpf (0-2) H 09/25/24 19:08 Urine WBC 0-5 /hpf (0-5) 09/25/24 19:08 Ur Squamous Epith Cells 21-50 /hpf (0-5) H 09/25/24 19:08 Calcium Oxalate Crystal 10-15 /hpf H 09/25/24 19:08 Amorphous Sediment Not Reportable 09/25/24 19:08 Urine Bacteria 4+ /hpf (NONE) H 09/25/24 19:08 Hyaline Casts 1.21 /lpf 09/25/24 19:08 Blood Type B Positive 09/25/24 19:22 Rho(D) Type Rh positive 09/25/24 19:22 Discharge Plan Discharge Patient Disposition: Home Clinical Impression: First trimester , Vaginal bleeding Condition: Stable Prescriptions: No Action sulfamethoxazole-trimethoprim 800-160 mg tablet 1 tab PO BID 10 Days Qty: 20 0RF methadone 40 mg Tablet,Soluble 140 mg PO QAM melatonin 10 mg Tablet 20 mg PO PRN Discharge Orders: Discharge ED (Routine); Ordered 09/25/24 Ordered By: Carlos Maurice Patient Instructions: Pain Management, Patient Portal & Giovani Instructions Activity Restrictions/Additional Instructions: Early Spotting Discharge Diagnosis and Current Status: The patient presented with spotting in early . Quantitative beta-hCG confirmed early gestation. Transvaginal ultrasound excluded ectopic , ovarian torsion, and other surgical emergencies. Laboratory evaluation was unremarkable. Expected Course and Follow-Up: Spotting is a common symptom in early and may be associated with hormonal changes, implantation, or prior use of long-acting reversible contraception (LARC) such as Nexplanon. The [place] [employer] recommends close follow-up for any abnormal bleeding in early , with serial beta-hCG measurements and repeat ultrasound as indicated to confirm location and viability, especially if symptoms persist or worsen. The patient will be referred to [facility] for ongoing management and evaluation of the Nexplanon implant, which should be removed as soon as feasible per FDA recommendations. Instructions: - Monitor for increased vaginal bleeding (soaking >1 pad/hour for 2 consecutive hours), severe abdominal pain, dizziness, syncope, or shoulder pain. These may indicate complications such as miscarriage or ectopic and require immediate medical attention. - Expect mild spotting or irregular bleeding, which is common in early and among users of progestin-only implants like Nexplanon, especially if the device is . - Avoid strenuous activity and sexual intercourse until follow-up, as advised by [facility]. - Keep the scheduled [facility] appointment for further evaluation, serial beta-hCG testing, and Nexplanon removal. The FDA advises removal of Nexplanon after 3 years to avoid contraceptive failure and abnormal bleeding patterns. - Do not use tampons or insert anything vaginally until cleared by [facility]. - Take acetaminophen for mild discomfort unless otherwise instructed. When to Seek Immediate Care: - Heavy vaginal bleeding (soaking >1 pad/hour for 2 hours) - Severe or worsening abdominal pain - Fainting, dizziness, or shortness of breath - Fever or chills - Severe pain, redness, or swelling at the Nexplanon site Additional Notes: Persistent or recurrent abnormal bleeding in the setting of an Nexplanon implant should be evaluated to rule out other causes, including infection or endometrial pathology, as recommended by the FDA and supported by clinical data. The patient should be counseled that irregular bleeding is a common side effect of progestin-only implants, but new or persistent symptoms in warrant prompt evaluation. Planned Follow-Up: - [facility] referral for ongoing care and Nexplanon removal - Serial beta-hCG and repeat ultrasound as clinically indicated Print Language: Guinean Coding Level of Care Code ED Sprayer Leather for William Ro
--- NOTE | 2024-09-27 08:32 | DCPLANNER ---
messaged [facility] for er f/u
== END 2024-09-25 22:08 | disposition home or self-care (01) ==
PROVIDERS: Emergency Provider Physician Assistant
DX: O20.9 Hemorrhage in early pregnancy, unspecified (principal); F17.210 Nicotine dependence, cigarettes, uncomplicated
CPT/HCPCS: 36415; 76817; 81001; 84702; 85025; 86900; 99284

== ENCOUNTER 2024-10-15 22:46 | Emergency (ER) | payer MEDICAID, SELFPAY ==
--- OUTSIDE RECORDS SUMMARY | 2024-10-15 22:52 | XMS_ITS | Patient Health Record ---
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 Name Role Phone Philippe Robles Unavailable [phone] Reason For Referral No Information Problems Problem Type SNOMED Code ICD Code Onset Dates Problem Status W/U Status Risk Notes Problem Low back pain (636504443) Low back pain (724.2) 7 Active confirmed [id number]- Problem Sinus tachycardia (93777575) Sinus tachycardia (427.89) 7 Active confirmed [id number]- Problem Pneumonia and influenza (483524760) Influenza, with pneumonia (487.0) 7 Problem resolved confirmed [id number]- Problem Missed (09525391) Miscarriage before 22 weeks gestation (632) 7 Problem resolved confirmed [id number]- Plan Of Treatment No Information
[2024-10-15 23:04] VITALS: BP 135/86; PULSE 83; RESP 16; TEMP 36.9; O2SAT 98; BMI 28.6
--- NOTE | 2024-10-16 06:08 | ED_ITS ---
HPI - Recheck/Abnormal Lab/Rx General: Chief Complaint: Recheck/Abnormal Lab/Rx Stated Complaint: Wants her HG Levels check 8 Weeks Time Seen by Provider: 10/16/24 00:33 History of Present Illness: Patient is a well-appearing 2-year-old female seen for check. She states that she had a positive test followed by 4 negative tests and she is concerned that she may have had a miscarriage. She denies abdominal pain, dysuria, frequency, vaginal bleeding, and has no other acute complaints. Related Data Home Medications ?Medication ?Instructions ?Recorded ?Confirmed melatonin 10 mg tablet 20 mg PO PRN 09/08/20 methadone 40 mg soluble tablet 140 mg PO QAM 09/08/20 09/07/24 Previous Rx's ?Medication ?Instructions ?Recorded sulfamethoxazole 800 1 tab PO BID 10 days #20 tab s 09/07/24 mg-trimethoprim 160 mg tablet Allergies Allergy/AdvReac Type Severity Reaction Status Date / Time No Known Allergies Allergy Verified 10/15/24 23:07 [facility] ED PFSH: Surgical History History of surgery on upper extremity Left arm Family History Grandmother Cancer Other Hypertension Social History Smoking and tobacco/nicotine status: current every day tobacco/nicotine user cigarettes Packs smoked per day: 1 Physical Exam Const: COMMON NORMALS: no acute distress, patient oriented x3 and alert HENMT: COMMON NORMALS: normocephalic and atraumatic HEAD & SCALP: normocephalic and atraumatic Eye: COMMON NORMALS: Equal, round and reactive pupils present, EOMs intact bilaterally and no scleral icterus PUPIL: Yes Equal, round and reactive pupils present Resp: COMMON NORMALS: normal respiratory effort and No retractions Cardio: COMMON NORMALS: regular rate, regular rhythm and No murmurs present (Cardio) RATE: regular rate RHYTHM: regular rhythm GI: COMMON NORMALS: Normal to inspection, nondistended, normoactive bowel sounds present, Soft to palpation and non-tender PALPATION: Yes Soft to palpation Neuro: COMMON NORMALS: patient oriented x3 SENSORIUM/ORIENTATION: Yes alert Skin: COMMON NORMALS: no rashes or lesions noted GENERAL SKIN EXAM: no rashes or lesions noted Course Vital Signs: Vital signs: Vital Signs Temperature 98.5 F 10/15/24 23:04 Pulse Rate 83 10/15/24 23:04 Respiratory Rate 16 10/15/24 23:04 Blood Pressure 135/86 10/15/24 23:04 Pulse Oximetry 98 10/15/24 23:04 Oxygen Delivery Me thod Room Air 10/15/24 23:04 MDM - Recheck/Abnormal Lab/Rx Medical Decision Making Blood hCG test is less than 1. She is in no acute distress. Evidence indicates she has completed miscarriage. There is nothing to do at this point and she will be discharged in stable condition with follow-up to [facility]. Lab Data Laboratory Results Ser , Semi-Qnt < 1.00 mIU/mL 10/15/24 23:44 No radiology studies performed this visit Discharge Plan Discharge Patient Disposition: Home Clinical Impression: Complete miscarriage Condition: Stable Prescriptions: No Action sulfamethoxazole-trimethoprim 800-160 mg tablet 1 tab PO BID 10 Days Qty: 20 0RF methadone 40 mg Tablet,Soluble 140 mg PO QAM melatonin 10 mg Tablet 20 mg PO PRN Discharge Orders: Discharge ED (Routine); Ordered 10/16/24 Ordered By: Duane Roche Discharge Diet: Usual diet Discharge Activity: Resume usual activity Patient Instructions: Miscarriage (ED), Patient Portal & Gi[facility] Instructions Activity Restrictions/Additional Instructions: Please follow-up with [facility] to discuss removal of your control device. As we discussed, you have completed your miscarriage and there is nothing further needed to do. Print Language: Bulgarian Coding Level of Care Code ED Occasional Babysitter for William Ro
== END 2024-10-16 01:06 | disposition home or self-care (01) ==
PROVIDERS: Emergency Provider Student in an Organized Health Care Education/Training Program
DX: O03.9 Complete or unspecified spontaneous abortion without complication (principal); F17.210 Nicotine dependence, cigarettes, uncomplicated
CPT/HCPCS: 36415; 84702; 99283

== ENCOUNTER → 2024-10-29 08:28 | Outpatient (BNVA) | payer MEDICAID, SELFPAY | PROVIDERS: Visit Provider Nurse Practitioner Women's Health | DX: Z01.419 Encounter for gynecological examination (general) (routine) without abnormal findings (principal); N92.6 Irregular menstruation, unspecified; N91.2 Amenorrhea, unspecified | CPT/HCPCS: 80053; 81025; 82306; 82670; 83001; 83002; 83036; 83520; 83525; 84144; 84146; 84402; 84403; 84443 ==

== ENCOUNTER → 2024-11-17 14:26 | Outpatient (BNVA) | payer MEDICAID, SELFPAY | PROVIDERS: Visit Provider Registered Nurse Neonatal Intensive Care | DX: J02.9 Acute pharyngitis, unspecified (principal) | CPT/HCPCS: 87426; 87880 ==